=== PATIENT | female | born 1985 | race Caucasian/White ===

== ENCOUNTER 2020-11-24 11:53 | Emergency (ER) | payer MEDICAID, SELFPAY ==
[2020-11-24 12:09] VITALS: BP 153/83; PULSE 85; RESP 18; TEMP 36.6; O2SAT 98
[2020-11-24 12:38] LABS: Bilirubin Negative (Negative); Blood Negative (Negative); Clarity Clear (Clear); Glucose Negative (Negative); Ketones Negative (Negative); Leukocyte Esterase Negative (Negative); Nitrite Negative (Negative); Urobilinogen 0.2 EU/dL (Up TO 0.2); pH 6.5 (5-8)
--- NOTE | 2020-11-24 12:40 | ED.GENADUL_ITS ---
Discharge Plan Disposition Patient Disposition: HOME Condition: Good Discharge Details Clinical Impression: COVID-19 vaccine administered, Back pain Primary Care Provider: Unknown,Unknown ED Provider: Rosita Caro Home Meds and New Rx's Prescriptions: New cyclobenzaprine 10 mg tablet 10 mg PO TID PRNQty: 10 RF: 0 No Action metoprolol tartrate 50 mg Tablet 50 mg PO DAILY RF: 0 Emgality Pen 120 mg/mL Pen Injector See Rx Instructions .ROUTE .COMPLEX RF: 0 Discharge Instructions Instructions: Back Pain (ED) Additional Instructions: Take ibuprofen 600 mg every 8 hours with food Take Tylenol 650 mg every 4-6 hours as needed for breakthrough pain Take Flexeril as needed for musculoskeletal pain, do not take this medication if you have to drive within 8 hours Follow-up with primary care physician, we have placed information after management for follow-up to establish care Please return with changes in bowel or bladder, strength or sensation changes, fever or chills, or with any new or worsening complaints Discharge Data Discharge Date/Time-TO BE ENTERED AT DEPARTURE: 11/24/20 13:09 Medical Decision Making No evidence of cauda equina syndrome, ambulatory with steady gait Reproducible tenderness, neurologically intact, no or evidence of urinary tract infection Afebrile and nontoxic No clinical evidence of discitis or epidural abscess clinically Return precautions discussed and patient expressed understanding We will follow up with primary care physician in the outpatient setting Return cautions patient expressed understanding, care management will follow up with patient regarding PCP establishment Blood pressure recheck by PCP in the outpatient setting Placed on Flexeril and ibuprofen for pain Differential Diagnosis Differential Diagnosis: Cauda equina syndrome, piriformis syndrome, urinary tract infection, pregna Medical Records Medical records reviewed: Yes I reviewed the patient's medical records. Lab Data Lab results reviewed: Yes I reviewed the patient's lab results. HPI General Mode of arrival: ambulatory . Date/Time Provider Initiated Documentation: 11/24/20 12:20 . Limitations to Documentation: no limitations . Information obtained by: patient . HPI Narrative: This 35-year-old female presents with report of left lower buttock and back pain. Patient states that this pain has been present for the past 3 days. She has similar episode last year that resolved on own. She did take ibuprofen prior to arrival with mild relief in symptoms. She denies any hematuria, or chance of . Fever or chills. She denies any abdominal pain or chance of . Pain exacerbated with position. Denies any vaginal discharge or risk of sexually transmitted disease. Denies any groin numbness, urinary incontinence or retention Related Data Home Medications Medication Instructions Recorded Confirmed cyclobenzaprine 10 mg PO TID PRN #10 tab 11/24/20 galcanezumab-gnlm [Emgality Pen] See Rx Instructions .ROUTE .COMPLEX 11/24/20 11/24/20 metoprolol tartrate 50 mg PO DAILY 11/24/20 11/24/20 Previous Rx's Medication Instructions Recorded cyclobenzaprine 10 mg PO TID PRN #10 tab 11/24/20 Allergies Allergy/AdvReac Type Severity Reaction Status Date / Time No Known Allergies Allergy Unverified 11/24/20 12:12 General Stated Complaint: Nk/Back Pain LATRICE: 3 Review of Systems Narrative: Review of systems obtained x7 aside from where indicated in HPI PFSH Social History Smoking/Tobacco Use Status: Never Smoking risk assessment performed?: Yes Alcohol Intake: current Alcohol Intake frequency: a few times a week Drug use: Occasionally Substance use type: marijuana Do you feel safe at home: Yes Do you feel safe in your relationship?: Yes Exam Const General: cooperative Orientation: alert and oriented x3 Back/Spine/Pelvis Other: Tenderness with palpation over left sacroiliac region, negative straight leg raise, no strength or sensation change DTRs intact bilateral lower extremities, strength and sensation intact distally Skin General skin exam: no rashes or lesions noted Neuro General: patient alert and patient oriented x3 Motor: muscle tone normal throughout, strength 5/5 throughout and strength abnormal Other: DTRs intact to bilateral lower extremities, strength and sensation intact to bilateral lower extremities Course Vital Signs Vital signs: Vital Signs Temperature 36.6 C 11/24/20 12:09 Pulse 85 11/24/20 12:09 Respiratory Rate 18 11/24/20 12:09 Blood Pressure 153/83 H 11/24/20 12:09 Pulse Oximetry 98 11/24/20 12:09 Temperature 36.6 C 11/24/20 12:09 Temperature Source Skin 11/24/20 12:09 Pulse 85 11/24/20 12:09 Respiratory Rate 18 11/24/20 12:09 Respiratory Effort Non-Labored 11/24/20 12:14 Blood Pressure 153/83 H 11/24/20 12:09 Blood Pressure Position Sitting 11/24/20 12:09 Pulse Oximetry 98 11/24/20 12:09 Oxygen Delivery Method Room Air 11/24/20 12:09 Oxygen Flow Rate 0 11/24/20 12:09 Pain Level 8 11/24/20 12:09 Lab/Test Results Lab/Test Results: Laboratory Tests Range/Units 11/24/20 12:30 Urine Color (Yellow) Yellow Urine Clarity (Clear) Clear Urine pH (5-8) 6.5 Ur Specific [place] (1.005-1.025) 1.010 Urine Protein (Negative) mg/dL Negative Urine Ketones (Negative) mg/dL Negative Urine Blood (Negative) Negative Urine Nitrite (Negative) Negative Urine Bilirubin (Negative) Negative Urine Urobilinogen (Up TO 0.2) EU/dL 0.2 Ur Leukocyte Esterase (Negative) Negative Urine Glucose (Negative) mg/dL Negative POC- Test(urine) Negative
--- NOTE | 2020-11-24 16:38 | NUR.NOTE ---
Nursing Note: Care management referral faxed for pcp set up - libl 11/24/20
--- NOTE | 2020-11-24 17:03 | CMPROGNOTE_ITS ---
- If Service Date Differs Date of service: 11/24/20 Time of Service: 17:03 Care Management Progress Note Katy is seen in the ED for back pain. At the request of ED provider, FAINA coordinates a referral to Rosalinda Serrano MD, of [facility], on-call provider, to assist Katy in obtaining a follow up appointment and in establishing care with a PCP. She is also referred to [facility] Community Radio Maintainer for assistance exploring health insurance options.
== END 2020-11-24 13:09 | disposition home or self-care (01) ==
PROVIDERS: Emergency Provider Physician Assistant
DX: M54.5 Low back pain (principal)
CPT/HCPCS: 81025; 99283; 81003

== ENCOUNTER 2021-02-19 20:52 | Outpatient (REF) | payer MEDICAID, SELFPAY ==
[2021-02-19 19:48] LABS: Abs Immature Grans 0.03 10^3/uL (0.0-0.06); Absolute Eosinophil Count 0.16 10^3/uL (0.0-0.7); Absolute Lymphocyte Count 2.26 10^3/uL (1.2-3.4); Absolute Monocyte Count 0.79 10^3/uL (0.1-0.8); Basophils % 0.6; Eosinophils % 1.3; HCT 40.3 % (36.0-46.0); HGB 12.8 g/dL (11.2-15.7); Immature Grans % 0.2; Lymphocytes % 18.3; MCH 28.6 pg (27.0-33.0); MCHC 31.8 % (32.0-36.0); MCV 90.2 fL (80-95); MPV 12.8 fL (8.0-11.0); Monocytes % 6.4; Neutrophils % 73.2; Nucleated RBC 0 %; Platelet Count 264 10^3/uL (130-400); RBC 4.47 10^6/uL (3.93-5.22); RDW 12.8 % (11.7-14.6); RDW-SD 42.7 fL; WBC 12.33 10^3/uL (4.4-10.8)
[2021-02-19 19:52] LABS: Absolute Basophil Count 0.07 10^3/uL (0.0-0.2); Absolute Neutrophil Count 9.03 10^3/uL (1.2-6.7)
[2021-02-19 20:30] LABS: ALT 36 U/L (14-59); AST 18 U/L (15-37); Albumin 4.4 g/dL (3.4-5.0); Alkaline Phosphatase 59 U/L (46-116); Anion Gap 13.7 mmol/L (3-11); BUN 8 mg/dL (7-18); Bilirubin, Total 0.4 mg/dL (0.2-1.0); CO2 24.3 mmol/L (21.0-32.0); CREATININE 0.6 mg/dL (0.55-1.02); Calcium 9.3 mg/dL (8.5-10.1); Calculated LDL 117 mg/dL (<100); Chloride 104 mmol/L (98-107); Cholesterol 190 mg/dL (<200); Glucose 87 mg/dL (74-106); HDL Cholesterol 53 mg/dL (40-60); Potassium 4.4 mmol/L (3.5-5.1); Sodium 142 mmol/L (136-145); TSH (W/Ref FT4) 0.89 uIU/mL (0.36-3.74); Total Protein 7.9 g/dL (6.4-8.2); Triglyceride 104 mg/dL (<150)
== END 2021-02-19 20:53 | disposition home or self-care (01) ==
LOC: NCHCN 20:52
PROVIDERS: Visit Provider Physician Assistant Medical
DX: I10 Essential (primary) hypertension (principal)
CPT/HCPCS: 80053; 80061; 84443; 85025

== ENCOUNTER → 2021-10-24 00:56 | Outpatient (CLI) | payer MEDICAID, SELFPAY ==
--- NOTE | 2021-10-24 10:22 | DI.RAD_ITS ---
Exam(s) XR SHOULDER LT COMPLETE 2+V EXAM: XR SHOULDER LT COMPLETE 2+V CLINICAL HISTORY: LT SHOULDER PAIN, M25.512. TECHNIQUE: 2D digital imaging was performed. Five views. COMPARISON: No exams were available for comparison FINDINGS: BONES: No acute fracture is present. No bony destructive lesion is seen. JOINTS: No dislocation present. SOFT TISSUE: Normal. IMPRESSION: Unremarkable radiographs of the left shoulder. DATA REPOSITORY: RADIATION DOSE DELIVERED:
--- NOTE | 2021-10-24 10:22 | DI.RAD_ITS ---
Exam(s) XR LUMBAR SPINE COMPLETE EXAM: XR LUMBAR SPINE COMPLETE CLINICAL HISTORY: LOW BACK PAIN,M54.5. TECHNIQUE: 2D digital imaging was performed. Five views. COMPARISON: No exams were available for comparison FINDINGS: BONES: No fracture or destructive lesion. Vertebral bodies are unremarkable. No facet hypertrophy clint ntified. DISKS: Intervertebral disc spaces are maintained. ALIGNMENT: Lumbar spinal alignment is within normal limits. SOFT TISSUE: Question of small stone projecting in mid left kidney. IMPRESSION: Unremarkable radiographs of the lumbar spine. Question of stone projecting in mid left kidney. DATA REPOSITORY: RADIATION DOSE DELIVERED:
== END ==
PROVIDERS: PCP Physician Assistant Medical; Visit Provider Physician Assistant Medical
DX: M25.512 Pain in left shoulder (principal); M54.59 Other low back pain
CPT/HCPCS: 72110; 73030

== ENCOUNTER 2022-01-28 11:50 | Outpatient (REF) | payer MEDICAID, SELFPAY ==
[2022-01-28 16:57] LABS: Anion Gap 8.7 mmol/L (3-11); BUN 10 mg/dL (7-18); CO2 25.3 mmol/L (21.0-32.0); CREATININE 0.7 mg/dL (0.55-1.02); Calcium 8.9 mg/dL (8.5-10.1); Calculated LDL 91 mg/dL (<100); Chloride 104 mmol/L (98-107); Cholesterol 156 mg/dL (<200); Glucose 94 mg/dL (74-106); HDL Cholesterol 54 mg/dL (40-60); Potassium 4.3 mmol/L (3.5-5.1); Sodium 138 mmol/L (136-145); Triglyceride 57 mg/dL (<150)
== END 2022-01-28 11:51 | disposition home or self-care (01) ==
LOC: NCHCN 11:50
PROVIDERS: PCP Physician Assistant Medical; Visit Provider Physician Assistant Medical
DX: I10 Essential (primary) hypertension (principal)
CPT/HCPCS: 80048; 80061; 84443

== ENCOUNTER → 2022-04-02 02:21 | Outpatient (CLI) | payer MEDICAID, SELFPAY ==
--- NOTE | 2022-04-02 10:30 | DI.RAD_ITS ---
Exam(s) XR CERVICAL SPINE COMP 4-5V EXAM: XR CERVICAL SPINE COMP 4-5V CLINICAL HISTORY: HEADACHE, UNSPECIFIED, R51.9. TECHNIQUE: 2D digital imaging was performed. Seven images were obtained. AP, odontoid, lateral and b ilateral oblique images were obtained. COMPARISON: No exams were available for comparison FINDINGS: The odontoid is intact. The lateral masses are well aligned. There is normal alignment of the cervi jay spine. There tibial bodies and posterior elements are well maintained. There is disc space narro wing at C6-C7 with endplate osteophytes present. No acute fracture or subluxation is present. No sig nificant neural foraminal stenosis is present. The cervical thoracic junction is well maintained. T he prevertebral soft tissues are unremarkable. Lung apices are clear. IMPRESSION: Mild cervical spondylosis. DATA REPOSITORY: RADIATION DOSE DELIVERED:
== END ==
PROVIDERS: PCP Physician Assistant Medical; Visit Provider Physician Assistant Medical
DX: M47.812 Spondylosis without myelopathy or radiculopathy, cervical region (principal)
CPT/HCPCS: 72050

== ENCOUNTER → 2022-04-22 02:10 | Outpatient (CLI) | payer MEDICAID, SELFPAY ==
--- NOTE | 2022-04-22 13:45 | DI.MRI_ITS ---
Exam(s) MR LUMBAR SPINE WO EXAM: MR LUMBAR SPINE WO CLINICAL HISTORY: LOW BACK PAIN, M54.50. TECHNIQUE: Multiplanar multisequence MRI of the Lumbar spine was performed. COMPARISON: CR XR LUMBAR SPINE COMPLETE from 10/24/2021 CR XR CERVICAL SPINE COMP 4-5V from 04/02/2022 FINDINGS: Bones: The last intervertebral disc space is designated the L5/S1 level for the numbering purpose of this examination. The vertebral body heights are well maintained. Alignment is satisfactory. The ma rrow signal characteristics are unremarkable. Cord: The conus tip ends at the T12 level. It is of normal size and signal intensity. T12-L1: No disc herniations or bulges are present. No central spinal canal or neural foraminal stenos is. L1-2: No disc herniations or bulges are present. No central spinal canal or neural foraminal stenosis . L2-3: No disc herniations or bulges are present. No central spinal canal or neural foraminal stenosis . L3-4: Mild disc bulging eccentric toward the left causing mild left neural foraminal narrowing.. No central spinal canal stenosis. L4-5: No disc herniations or bulges are present. No central spinal canal or neural foraminal stenosis . L5-S1: No disc herniations or bulges are present. No central spinal canal or neural foraminal stenosi s. The visualized SI joints and sacrum are well maintained. Soft tissues: The paraspinal soft tissues are unremarkable. IMPRESSION: Mild disc bulging at L3-4, eccentric toward the left causing mild left neural foraminal narrowing. DATA REPOSITORY:
== END ==
PROVIDERS: PCP Physician Assistant Medical; Visit Provider Physician Assistant Medical
DX: M54.59 Other low back pain (principal); M51.26 Other intervertebral disc displacement, lumbar region
CPT/HCPCS: 72148

== ENCOUNTER 2022-06-20 12:19 | Outpatient (CLI) | payer MEDICAID, SELFPAY ==
[2022-06-20 12:30] VITALS: BP 154/97; PULSE 99; RESP 20; TEMP 36.8; O2SAT 99
--- NOTE | 2022-06-20 12:57 | PDOC.PAIN ---
Date of service: 06/20/22 Time of Service: 12:57 Pain Clinic Procedure Note Procedure Note Procedure Note: Lumbar Epidural Steroid Injection Procedure Note Pre-operative diagnosis: lumbar radiculopathy Post-operative diagnosis: same as above COMMENTS: patient was evaluated in clinic on 06/11/22 with back pain and radiation down left lateral leg. MRI L spine shows disc bulge at L3-4 causing probable L3/4 nerve root irritation. Patient presents for LESI for symptomatic relief. Katy Gonzalez has been referred to the [facility] for lumbar epidural steroid injection. The patient was greeted by the nurse who verified patients name and . Patient was then taken to the fluoroscopy suite. The patient was interviewed and the medial record reviewed. There were no medical, pharmacologic, radiographic, or other structural contraindications to attempting fluoroscopically guided lumbar epidural steroid injection. Risks and expected side effects as well as potential benefits of the procedure were reviewed and voiced concerns expressed. The patient consent form was signed and witnessed. Standard patient time-out procedure was performed. The patient was placed in the prone position on the fluoroscopy table and automated blood pressure cuff and pulse oximeter applied. The skin entry point for entering/approaching the epidural space by a L3-4 and marked. Following thorough chlorhexadine preparation of the skin and draping and 1% lidocaine infiltration of the skin entry point and subcutaneous tissues, a 18 gauge Touhy needle was placed under fluoroscopic guidance and with loss of resistance technique into the epidural space. Needle tip placement and depth were aided and confirmed by fluoroscopy. There was no paresthesia or return of blood or CSF through the needle. 1 cc's of Omnipaque 240 was injected with clear epidural spread confirmed with fluoroscopy. 80mg depomedrol was injected. There was not any unusual discomfort expressed by Katy Gonzalez. Patient's vital signs were stable throughout the procedure and were as recorded in nursing records. Follow up plans and appointments were discussed with patient. Post procedure instruction was given as documented in nursing records and having met discharge criteria and was discharged from the [facility]. COMMENTS: If this procedure is helpful, it can be completed up to 3 times per 12 months. Pre-procedure VAS score 7/10. Post-procedure VAS score 1/10. Figueroa Norman MD Pain Management
[2022-06-20] MEDS: methylPREDNISolone ACETATE 80 MG/ML VIAL IJ (13:01)
[2022-06-20] MEDS: Omnipaque 240 MG/ML 50 ML BTL IJ (13:01)
[2022-06-20 13:05] VITALS: BP 156/88; PULSE 103; RESP 20; O2SAT 100
--- NOTE | 2022-06-20 13:28 | DI.RAD_ITS ---
Exam(s) XR PAIN CLINIC LUMBAR SP 2V EXAM: XR PAIN CLINIC LUMBAR SP 2V CLINICAL HISTORY: Dx: Lumbar Radiculopathy TECHNIQUE: 2D and realtime digital imaging was performed. Radiologist not present. CONTRAST MATERIAL: None. COMPARISON: No exams were available for comparison FINDINGS: Fluoroscopy was provided for pain management therapy. Please refer to procedure report or details. Cumulative dose: Ka,r=6.41 mGy IMPRESSION: RADIATION DOSE DELIVERED:
== END 2022-06-20 12:20 | disposition home or self-care (01) ==
LOC: PC 12:19
PROVIDERS: PCP Physician Assistant Medical; Visit Provider Internal Medicine
DX: M54.16 Radiculopathy, lumbar region (principal)
CPT/HCPCS: 62323; 72100; J1040; Q9967